=== PATIENT | female | born 1990 | race Hispanic/Latino ===

== ENCOUNTER 2016-11-24 00:25 | Emergency (ER) | payer SELFPAY ==
[2016-11-24 01:08] VITALS: BP 164/99
--- NOTE | 2016-11-24 01:34 | Emergency Department Report ---
ED General Adult HPI - General Chief complaint: Overdose Stated complaint: OVERDOSE Time Seen by Provider: 11/24/16 01:24 Source: patient, family, EMS (ems notes not available at time of chart dictation), RN notes reviewed Mode of arrival: Stretcher Limitations: No Limitations - History of Present Illness Initial comments: This is a 26-year-old female. She is previously unknown to me. As per the patient's sister, Mrs. Iliana Segovia; [phone], patient has a past history of polysubstance abuse. The patient apparently took an unknown recreational drug prior to arrival, think it was GHB. The patient is not homicidal or suicidal. She does not have access to guns or firearms. She indicates that she was taking the drug for recreational purposes. She reports that she did not fall, she reports that she did not hit her head. Patient was brought to the hospital for overdose and unresponsiveness. As per triage documentation, EMS gave 2 mg of Narcan, and the patient came back around. Severity scale (0 -10): 0 Consistency: now resolved Improves with: medication Worsens with: none Associated Symptoms: denies other symptoms - Related Data Previous Rx's Medication Instructions Recorded Last Taken Type Naloxone HCl [Narcan] 4 mg NS Q1HR PRN #1 spray 11/24/16 Unknown Rx Allergies Allergy/AdvReac Type Severity Reaction Status Date / Time Penicillins Allergy Unknown Unknown Verified 04/20/13 13:01 ED Review of Systems ROS: Stated complaint: OVERDOSE Other details as noted in HPI ED Past Medical Hx - Past Medical History Previous Medical History?: No Hx Hypertension: No Hx Congestive Heart Failure: No Hx Diabetes: No Hx Deep Vein Thrombosis: No Hx Renal Disease: No Hx Sickle Cell Disease: No Hx Seizures: No Hx Asthma: No Hx COPD: No Hx HIV: No - Surgical History Past Surgical History?: No - Social History Smoking Status: Current Every Day Smoker Substance Use Type: Other - Medications Home Medications: Home Medications Medication Instructions Recorded Confirmed Last Taken Type Naloxone HCl [Narcan] 4 mg NS Q1HR PRN #1 spray 11/24/16 Unknown Rx ED Physical Exam - General Limitations: No Limitations General appearance: alert, in no apparent distress - Head Head exam: Present: atraumatic, normocephalic - Eye Eye exam: Present: normal appearance, PERRL, EOMI. Absent: nystagmus - ENT ENT exam: Present: normal exam, normal orophraynx, mucous membranes moist, normal external ear exam - Neck Neck exam: Present: normal inspection, full ROM. Absent: tenderness, meningismus - Respiratory Respiratory exam: Present: normal lung sounds bilaterally. Absent: respiratory distress, wheezes, rales, rhonchi, stridor, chest wall tenderness, accessory muscle use, decreased breath sounds - Cardiovascular Cardiovascular Exam: Present: regular rate, normal rhythm, normal heart sounds. Absent: bradycardia, tachycardia, irregular rhythm, systolic murmur, diastolic murmur, rubs, gallop - GI/Abdominal GI/Abdominal exam: Present: soft, normal bowel sounds. Absent: distended, tenderness, guarding, rebound, rigid, pulsatile mass - Extremities Exam Extremities exam: Present: normal inspection, full ROM, normal capillary refill. Absent: tenderness, pedal edema, joint swelling, calf tenderness - Back Exam Back exam: Present: normal inspection, full ROM. Absent: tenderness, CVA tenderness (R), CVA tenderness (L), muscle spasm, paraspinal tenderness, vertebral tenderness - Neurological Exam Neurological exam: Present: alert, oriented X3, normal gait, other (Extraocular movements intact. Tongue midline. No facial droop. Facial sensation intact to light touch in the V1, V2, V3 distribution bilaterally. 5 and 5 strength in 4 extremities.. Sensation is intact to light touch in 4 extremities.). Absent : motor sensory deficit - Psychiatric Psychiatric exam: Present: anxious. Absent: homicidal ideation, suicidal ideation - Skin Skin exam: Present: warm, dry, intact, normal color. Absent: rash ED Course Vital Signs 11/24/16 01:07 Temperature 97.9 F Pulse Rate 96 H Respiratory 20 Rate Blood Pressure 164/99 [Right] O2 Sat by Pulse 100 Oximetry - Reevaluation(s) Reevaluation #1: 11/24/16 02:41 Differential diagnosis: Unintentional overdose, history of drug abuse Assessment and plan: 26-year-old female with recreational drug overdose, now alert and oriented 3, has a GCS of 15, NIH score of 0. The patient is refusing all further medical intervention and evaluation. The patient exhibits decision-making capacity. She is free from distracting injury. She is able to articulate the risks of an incomplete evaluation, including , disability, paralysis, permanent loss of quality of life. She is refusing laboratory draw. I offered to have the patient observed in the ER for a few hours. She refused. I offered to have the patient evaluated by the mental health counselor for drug abuse rehabilitation. The patient refused. The patient is going to sign out AGAINST MEDICAL ADVICE. She is accompanied by her mother and by her sister. The patient is encouraged that she can return to the ER right away if and when she changes her mind. She will be discharged at this time. She will be discharged with a Narcan prescription. The whole conversation is witnessed by nurses Yancy Hernandes. ED Medical Decision Making - Lab Data Vital Signs 11/24/16 01:07 Temperature 97.9 F Pulse Rate 96 H Respiratory 20 Rate Blood Pressure 164/99 [Right] O2 Sat by Pulse 100 Oximetry - EKG Data 11/24/16 02:43 Sinus tachycardia, 107 bpm, normal axis, QTC 485 ms, poor R wave progression, not morphologically consistent with STEMI Critical care attestation.: If time is entered above; I have spent that time in minutes in the direct care of this critically ill patient, excluding procedure time. ED Disposition Clinical Impression: Overdose Disposition: LEFT AGAINST MEDICAL ADVICE Is pt being admited?: No Does the pt Need Aspirin: No Condition: Undetermined Instructions: Polysubstance Abuse (ED) Additional Instructions: As we discussed, he was leaving the hospital AGAINST MEDICAL ADVICE. by leaving , the patient risks , disability, paralysis, loss of quality of life. If you change your mind, return to the ER right away. The emergency room is open 24 hours a day, 7 days a week. It never closes. Discontinue consumption of drugs. They are bad for your health. Dr. Timothy Madison is a local primary care doctor. Follow up with him or a local mental health department as soon as possible. Please return to the ER right away if and when you change your mind. Prescriptions: Naloxone HCl [Narcan] 4 mg NS Q1HR PRN #1 spray PRN Reason: Agitation Referrals: PRIMARY CARE, [Primary Care Provider] - 3-5 Days TIMOTHY MADISON MD [Staff Physician] - 3-5 Days [facility] [Outside] - 3-5 Days
== END 2016-11-24 02:29 | disposition left against medical advice (07) ==
LOC: ED 00:25
DX: T65.91XA Toxic effect of unspecified substance, accidental (unintentional), initial encounter (principal); F17.200 Nicotine dependence, unspecified, uncomplicated; Z88.0 Allergy status to penicillin; Y92.89 Other specified places as the place of occurrence of the external cause
CPT/HCPCS: 93005; 93010; 99284

== ENCOUNTER 2018-02-26 14:12 | Inpatient (IN) | payer OTHER ==
[2018-02-26 15:09] VITALS: BP 162/101
[2018-02-26] MEDS ORDERED: SUBLIMAZE IV PRN (15:19)
[2018-02-26] MEDS ORDERED: NARCAN 0.4 MG/1 ML IV PRN (15:19)
[2018-02-26] MEDS ORDERED: MINERAL OIL PO PRN (15:19)
[2018-02-26] MEDS ORDERED: ZOFRAN IV PRN (15:19)
[2018-02-26] MEDS ORDERED: BRETHINE IVP PRN (15:19)
[2018-02-26] MEDS ORDERED: BRETHINE SUB-Q PRN (15:19)
[2018-02-26] MEDS ORDERED: STADOL IV PRN (15:19)
[2018-02-26] MEDS ORDERED: XYLOCAINE 2% INFILTRATI ONE (15:19)
[2018-02-26] MEDS ORDERED: MAGNESIUM SULFATE 40GM/1000ML 40 GM/1,000 ML BAG IV SCH (16:00)
[2018-02-26] MEDS ORDERED: CLEOCIN 900 MG/50 mL 900 MG/50 ML BAG IV SCH (16:00)
[2018-02-26] MEDS ORDERED: PITOCin/NS 20 UNIT/1000ML DRIP 20 UNITS/1,000 ML BAG IV SCH (16:00)
[2018-02-26] MEDS ORDERED: LACTATED RINGERS 1,000 ML IV SCH (16:00)
[2018-02-26] MEDS ORDERED: PITOCin/NS 30 UNIT/500ML 30 UNITS/500 ML BAG IV SCH ×2 (16:00)
[2018-02-26] MEDS ORDERED: MAGNESIUM SULFATE 4GM/100ML 4 GM/100 ML BAG IV ONE (16:23)
[2018-02-26 17:52] LABS: Amphetamine Screen,Urine PRESUMPTIVE NEGATIVE; Benzodiazepines Screen,Urine PRESUMPTIVE NEGATIVE; Cannabinoid Screen,Urine PRESUMPTIVE NEGATIVE; Cocaine Screen,Urine PRESUMPTIVE NEGATIVE; Methadone Screen,Urine PRESUMPTIVE NEGATIVE; Opiate Screen,Urine PRESUMPTIVE NEGATIVE
== END 2018-02-26 16:15 | disposition left against medical advice (07) | DRG 781 ==
LOC: TRG 14:12 → LD 15:35
PROVIDERS: ADMIT Obstetrics & Gynecology; ATTEND Obstetrics & Gynecology
DX: O99.343 Other mental disorders complicating pregnancy, third trimester (principal); O16.3 Unspecified maternal hypertension, third trimester; O14.93 Unspecified pre-eclampsia, third trimester; F41.9 Anxiety disorder, unspecified; Z3A.37 37 weeks gestation of pregnancy
CPT/HCPCS: 80307

== ENCOUNTER 2018-02-27 14:08 | Inpatient (IN) | payer OTHER ==
[2018-02-27 16:13] LABS: Hematocrit 35.3 % (30.3-42.9); Hemoglobin 11.6 gm/dl (10.1-14.3); Mean Corpuscular HGB Conc 33 % (30-34); Mean Corpuscular Hemoglobin 28 pg (28-32); Mean Corpuscular Volume 85 fl (79-97); Platelet Count 159 K/mm3 (140-440); Red Blood Count 4.15 M/mm3 (3.65-5.03); Red Cell Distribution Width 18.7 % (13.2-15.2)
[2018-02-27 16:54] LABS: Uric Acid 6.8 mg/dL (3.5-7.6)
--- NOTE | 2018-02-27 17:56 | Ultrasound Report ---
FINAL REPORT EXAM: US OB FOLLOW UP HISTORY: NO CARE TECHNIQUE: Transabdominal sonography of the pelvis. PRIORS: None. FINDINGS: There is a single, live intrauterine in cephalic presentation. heart motion is detected and heart rate is 139 beats per minute. Placenta is located posterior fundal and there is no evidence of previa. Biometric data obtained and corresponds to an estimated gestational age of 37 weeks 3 days and an ultrasound estimated date of delivery of 17 March 2018. survey not performed. Some fluid incidentally noted in bilateral hemiscrotum. Amniotic fluid index is 19.4 cm. EFW: 3231g +/- 478g. BPD: 8.95 cm HC: 33.57 cm AC: 33.95 cm FL: 7.22 cm Remainder of the uterus and adnexa grossly unremarkable. IMPRESSION: 1. Single, live intrauterine .
--- NOTE | 2018-02-27 17:57 | Ultrasound Report ---
FINAL REPORT EXAM: US OB BPP WO NON-STRESS HISTORY: BETTER ASSESSMENT OF DATES TECHNIQUE: Transabdominal sonography of the pelvis. PRIORS: None. FINDINGS: Biophysical profile: breathing movements: 2/2 movements: 2/2 posture and tone: 2/2 Qualitative amniotic fluid volume: 2/2 Total: 8/8 heart rate 139 beats per minute. IMPRESSION: 1. Biophysical profile as noted above.
[2018-02-27] MEDS ORDERED: APRESOLINE IV ONE (18:15)
[2018-02-27] MEDS ORDERED: MAGNESIUM SULFATE 4GM/100ML 4 GM/100 ML BAG IV ONE (18:16)
[2018-02-27] MEDS ORDERED: SUBLIMAZE IV PRN (18:23)
[2018-02-27] MEDS ORDERED: MINERAL OIL PO PRN ×2 (18:23→21:36)
[2018-02-27] MEDS ORDERED: STADOL IV PRN (18:23)
[2018-02-27] MEDS ORDERED: BRETHINE IVP PRN ×2 (18:23→21:36)
[2018-02-27] MEDS ORDERED: PHENERGAN PO PRN (18:23)
[2018-02-27] MEDS ORDERED: XYLOCAINE 2% INFILTRATI ONE ×2 (18:23→21:36)
[2018-02-27] MEDS ORDERED: BRETHINE SUB-Q PRN ×2 (18:23→21:36)
[2018-02-27] MEDS ORDERED: ZOFRAN IV PRN (18:23)
[2018-02-27] MEDS ORDERED: MAGNESIUM SULFATE 40GM/1000ML 40 GM/1,000 ML BAG IV SCH (19:00)
[2018-02-27] MEDS ORDERED: PITOCin/NS 20 UNIT/1000ML DRIP 20 UNITS/1,000 ML BAG IV SCH (19:00)
[2018-02-27] MEDS ORDERED: PITOCin/NS 30 UNIT/500ML 30 UNITS/500 ML BAG IV SCH (19:00)
[2018-02-27] MEDS ORDERED: LACTATED RINGERS 1,000 ML IV SCH (19:00)
[2018-02-27 19:59] LABS: Mucus,Urine FEW /HPF
[2018-02-27 20:15] LABS: Bilirubin,Urine Negative (Negative); Blood,Urine Negative (Negative); Color,Urine Straw (Yellow); Protein,Urine >500 mg/dL (Negative); Urobilinogen,Urine < 2.0 mg/dL (<2.0)
[2018-02-27] MEDS ORDERED: NARCAN 0.4 MG/1 ML IV PRN (21:36)
--- NOTE | 2018-02-27 21:46 | History and Physical Report ---
History of Present Illness Date of examination: 02/27/18 Date of admission: 02/27/18 19:57 Chief complaint: came back after patient left AMA yesterday for elevated BP 200/100s History of present illness: This is a 28 yo at 37 weeks came into triage with elevated BP as she was admitted by another physician for elevated BP at term. She has piecemeal care without any records available. Past History Past Medical History: no pertinent history Past Surgical History: no surgical history Family/Genetic History: none Social history: single, prescription drug abuse. denies: smoking, alcohol abuse - Obstetrical History : 6 Para: 3 Hx # Term Pregnancies: 3 Number of Pregnancies: 0 Spontaneous Abortions: 0 Induced : 0 Number of Living Children: 3 Medications and Allergies Allergies Allergy/AdvReac Type Severity Reaction Status Date / Time Penicillins Allergy Unknown Unknown Verified 04/20/13 13:01 Home Medications Medication Instructions Recorded Confirmed Last Taken Type Naloxone HCl [Narcan] 4 mg NS Q1HR PRN #1 spray 11/24/16 02/26/18 1 Year Ago Rx ~02/26/17 Active Meds: Active Medications Butorphanol Tartrate (Stadol) 2 mg IV Q2H PRN PRN Reason: Pain , Severe (7-10) Ephedrine Sulfate (Ephedrine Sulfate) 10 mg IV Q2M PRN PRN Reason: Hypotension Ephedrine Sulfate (Ephedrine Sulfate) 10 mg IV Q2M PRN PRN Reason: Hypotension Fentanyl (Sublimaze) 100 mcg IV Q2H PRN PRN Reason: Labor Pain Last Admin: 02/27/18 19:35 Dose: 100 mcg Magnesium Sulfate (Magnesium Sulfate 40gm/1000ml) 40 gm in 1,000 mls @ 50 mls/ hr IV DIRECT TRAVIS Last Admin: 02/27/18 19:43 Dose: 2 gm/hr, 50 mls/hr Lactated Ringer's (Lactated Ringers) 1,000 mls @ 125 mls/hr IV DIRECT TRAVIS Oxytocin/Sodium Chloride (Pitocin/Ns 20 Unit/1000ml Drip) 20 units in 1,000 mls @ 125 mls/hr IV DIRECT TRAVIS Oxytocin/Sodium Chloride (Pitocin/Ns 30 Unit/500ml) 30 units in 500 mls @ 1 mls /hr IV TITR TRAVIS; Protocol Oxytocin/Sodium Chloride (Pitocin/Ns 30 Unit/500ml) 30 units in 500 mls @ 0 mls /hr IV TITR TRAVIS; Protocol Lactated Ringer's (Lactated Ringers) 1,000 mls @ 125 mls/hr IV DIRECT TRAVIS Labetalol HCl (Normodyne) 100 mg PO BID TRAVIS Lidocaine (Xylocaine 2%) 20 ml INFILTRATI ONCE ONE Stop: 02/27/18 21:37 Mineral Oil (Mineral Oil) 30 ml PO QHS PRN PRN Reason: Constipation Mineral Oil (Mineral Oil) 30 ml PO QHS PRN PRN Reason: Constipation Naloxone HCl (Narcan 0.4 Mg/1 Ml) 0.1 mg IV Q2MIN PRN PRN Reason: Res Rate </= 8 or 02 SAT < 92% Ondansetron HCl (Zofran) 4 mg IV Q8H PRN PRN Reason: Nausea And Vomiting Promethazine HCl (Phenergan) 25 mg PO Q6H PRN PRN Reason: Nausea And Vomiting Terbutaline Sulfate (Brethine) 0.25 mg SUB-Q ONCE PRN PRN Reason: Hyperstimulation/Hypertonicity Terbutaline Sulfate (Brethine) 0.25 mg IVP ONCE PRN PRN Reason: Hyperstimulation/Hypertonicity Terbutaline Sulfate (Brethine) 0.25 mg SUB-Q ONCE PRN PRN Reason: Hyperstimulation/Hypertonicity Terbutaline Sulfate (Brethine) 0.25 mg IVP ONCE PRN PRN Reason: Hyperstimulation/Hypertonicity Review of Systems All systems: negative - Vital Signs Vital signs: Vital Signs Pulse BP 98 H 156/106 02/27/18 14:56 02/27/18 14:56 Temp Pulse Resp BP Pulse Ox 96.4 F L 117 H 16 179/106 02/27/18 19:44 02/27/18 21:35 02/27/18 19:44 02/27/18 21:35 - Physical Exam Breasts: Positive: normal Cardiovascular: Regular rate, Normal S1 Lungs: Positive: Clear to auscultation, Normal air movement Abdomen: Positive: normal appearance, soft, normal bowel sounds. Negative: distention, guarding Genitourinary (Female): Positive: normal external genitalia, normal perenium Vulva: both: normal Vagina: Positive: normal moisture Anus/Rectum: Positive: normal perianal skin Extremities: Positive: normal Deep Tendon Reflex Grade: Normal +2 - Obstetrical FHR: category 1 Cervical Dilatation: 1 Cervical Effacement Percentage: 50 station: -3 Uterine Contraction Pattern: Absent Uterine Tone Measurement Phase: Resting Results Result Diagrams: 02/27/18 15:53 02/27/18 15:53 Abnormal lab results 02/27/18 02/27/18 Range/Units 15:53 15:53 WBC 12.7 H (4.5-11.0) K/mm3 RDW 18.7 H (13.2-15.2) % Creatinine 1.4 H (0.7-1.2) mg/dL Lactate Dehydrogenase 434 H (91-180) units/L All other labs normal. Assessment and Plan A/P IUP 37 weeks No care Elevated BP Preeclampsia labs Mag 4/2 , strict i's and o's , mag checks every 6 hrs IOL for pree at term consider cytotec vs cervidil close monitor of fetus and maternal BP meds ( acute) labatelol and hydralazine
[2018-02-27] MEDS ORDERED: NORMODYNE IV ONE (21:47)
[2018-02-27] MEDS: AMBIEN PO PRN (22:00)
[2018-02-27] MEDS ORDERED: CYTOTEC VG PRN (22:33)
[2018-02-27] MEDS: NORMODYNE PO SCH (23:41)
[2018-02-28 05:32] LABS: Hematocrit 34.5 % (30.3-42.9); Hemoglobin 11.2 gm/dl (10.1-14.3); Mean Corpuscular HGB Conc 32 % (30-34); Mean Corpuscular Hemoglobin 28 pg (28-32); Mean Corpuscular Volume 86 fl (79-97); Platelet Count 153 K/mm3 (140-440); Red Blood Count 4.03 M/mm3 (3.65-5.03); Red Cell Distribution Width 19.5 % (13.2-15.2)
--- NOTE | 2018-02-28 07:34 | Ultrasound Report ---
ULTRASOUND OB VELOCIMETRY UMBILICAL ARTERY HISTORY: No care, elevated blood pressure. TECHNIQUE: Transabdominal ultrasound. Spectral Doppler interrogation was performed on 3 segments of the umbilical cord. FINDINGS: heart rate measures 139 beats per minute. The spectral waveforms are normal and persistent. No evidence for loss or reversal of end-diastolic flow. The resistive index average measures 0.51. The systolic/diastolic ratio average measures 2.06. IMPRESSION: Umbilical cord Doppler within normal limits.
[2018-02-28] MEDS: NORMODYNE PO SCH ×2 (10:04→22:18)
[2018-02-28] MEDS: LACTATED RINGERS 1,000 ML IV SCH ×2 (10:37→11:34)
[2018-02-28] MEDS: PITOCin/NS 30 UNIT/500ML 30 UNITS/500 ML BAG IV SCH ×7 (11:33→17:09)
[2018-02-28] MEDS ORDERED: NARCAN 2 MG/2 ML IV PRN (12:21)
--- NOTE | 2018-02-28 12:21 | Anesthesia Consultation ---
Anesthesia Consult and Med Hx Date of service: 02/28/18 - Airway Anesthetic Teeth Evaluation: Good ROM Head & Neck: Adequate Mental/Hyoid Distance: Adequate Mallampati Class: Class II Intubation Access Assessment: Probably Good - Pre-Operative Health Status ASA Pre-Surgery Classification: ASA2 Proposed Anesthetic Plan: Epidural, Spinal - Pulmonary Hx Asthma: No COPD: No Hx Pneumonia: No - Cardiovascular System Hx Hypertension: No - Central Nervous System Hx Seizures: No Hx Psychiatric Problems: Yes (hx anxiety disorder) - Endocrine Hx Renal Disease: No Hx End Stage Renal Disease: No Hx Hypothyroidism: No Hx Hyperthyroidism: No - Hematic Hx Anemia: No Hx Sickle Cell Disease: No - Other Systems Hx Alcohol Use: No
--- NOTE | 2018-02-28 12:42 | Progress Note ---
Assessment and Plan A/P IUP 37+1 weeks No care Elevated BP ( pree) mag level 7.7 decreased mag to 1g/hr and recheck Preeclampsia labs offered epidural patinet progressed from 1-4cm will continue with pitocin close monitor of fetus and maternal BP stable ( continue labatelol 100 mg bid) Subjective - Subjective Date of service: 02/28/18 Principal diagnosis: Preeclampsia Interval history: This is a 28 yo at 37 weeks came into triage with elevated BP as she was admitted by another physician for elevated BP at term. She has piecemeal care without any records available. Patient reports: movement normal, contractions, no new complaints, no loss of fluid, no vaginal bleeding Objective - Vital Signs Vital Signs: Vital Signs - 12hr 02/28/18 02/28/18 02/28/18 01:04 01:33 02:04 Pulse Rate 85 83 70 Blood Pressure 133/83 133/82 111/63 O2 Sat by Pulse Oximetry 02/28/18 02/28/18 02/28/18 02:33 03:03 03:33 Pulse Rate 78 81 76 Blood Pressure 121/71 128/67 108/63 O2 Sat by Pulse Oximetry 02/28/18 02/28/18 02/28/18 04:03 04:33 05:03 Pulse Rate 83 85 86 Blood Pressure 107/63 114/66 122/69 O2 Sat by Pulse Oximetry 02/28/18 02/28/18 02/28/18 05:04 05:09 05:11 Pulse Rate 85 85 85 Blood Pressure O2 Sat by Pulse 94 88 94 Oximetry 02/28/18 02/28/18 02/28/18 05:14 05:19 05:24 Pulse Rate 84 85 82 Blood Pressure O2 Sat by Pulse 94 92 92 Oximetry 02/28/18 02/28/18 02/28/18 05:29 05:33 05:34 Pulse Rate 83 83 85 Blood Pressure 112/67 O2 Sat by Pulse 91 93 Oximetry 02/28/18 02/28/18 02/28/18 05:38 05:39 05:44 Pulse Rate 84 83 65 Blood Pressure O2 Sat by Pulse 93 94 95 Oximetry 02/28/18 02/28/18 02/28/18 05:49 05:52 05:54 Pulse Rate 77 79 78 Blood Pressure O2 Sat by Pulse 93 94 94 Oximetry 02/28/18 02/28/18 02/28/18 05:59 06:03 06:04 Pulse Rate 64 77 77 Blood Pressure 121/75 O2 Sat by Pulse 94 93 Oximetry 02/28/18 02/28/18 02/28/18 06:09 06:14 06:19 Pulse Rate 78 79 77 Blood Pressure O2 Sat by Pulse 94 93 93 Oximetry 02/28/18 02/28/18 02/28/18 06:24 06:29 06:33 Pulse Rate 79 82 80 Blood Pressure 119/76 O2 Sat by Pulse 93 93 Oximetry 02/28/18 02/28/18 02/28/18 06:34 06:37 06:39 Pulse Rate 80 84 81 Blood Pressure O2 Sat by Pulse 93 93 93 Oximetry 02/28/18 02/28/18 02/28/18 06:44 06:48 06:49 Pulse Rate 82 82 82 Blood Pressure O2 Sat by Pulse 94 94 93 Oximetry 02/28/18 02/28/18 02/28/18 06:54 06:59 07:03 Pulse Rate 84 83 82 Blood Pressure 124/80 O2 Sat by Pulse 93 93 Oximetry 02/28/18 02/28/18 02/28/18 07:04 07:06 07:09 Pulse Rate 82 82 82 Blood Pressure O2 Sat by Pulse 94 94 93 Oximetry 02/28/18 02/28/18 02/28/18 07:14 07:16 07:19 Pulse Rate 81 80 79 Blood Pressure O2 Sat by Pulse 93 94 93 Oximetry 02/28/18 02/28/18 02/28/18 07:24 07:29 07:34 Pulse Rate 78 76 75 Blood Pressure 121/75 O2 Sat by Pulse 92 93 92 Oximetry 02/28/18 02/28/18 02/28/18 07:38 07:39 08:03 Pulse Rate 82 73 79 Blood Pressure 136/85 O2 Sat by Pulse 0 L 94 Oximetry 02/28/18 02/28/18 02/28/18 08:34 09:03 09:33 Pulse Rate 85 90 90 Blood Pressure 116/73 122/70 119/67 O2 Sat by Pulse Oximetry 02/28/18 02/28/18 02/28/18 10:03 10:04 10:09 Pulse Rate 91 H 91 H 91 H Blood Pressure 141/81 143/84 143/84 O2 Sat by Pulse Oximetry 02/28/18 02/28/18 02/28/18 10:33 10:41 10:46 Pulse Rate 90 99 H Blood Pressure 138/65 O2 Sat by Pulse 86 100 Oximetry 02/28/18 02/28/18 02/28/18 10:48 10:51 10:55 Pulse Rate 91 H 82 Blood Pressure O2 Sat by Pulse 90 87 80 L Oximetry 02/28/18 02/28/18 02/28/18 10:56 11:01 11:03 Pulse Rate 80 81 78 Blood Pressure 141/92 O2 Sat by Pulse 90 89 Oximetry 02/28/18 02/28/18 02/28/18 11:06 11:07 11:12 Pulse Rate 77 Blood Pressure O2 Sat by Pulse 89 87 83 L Oximetry 02/28/18 02/28/18 02/28/18 11:15 11:18 11:20 Pulse Rate 78 Blood Pressure O2 Sat by Pulse 86 90 93 Oximetry 02/28/18 02/28/18 02/28/18 11:25 11:30 11:33 Pulse Rate 79 76 81 Blood Pressure 135/99 O2 Sat by Pulse 100 99 Oximetry 02/28/18 02/28/18 02/28/18 11:35 11:40 11:45 Pulse Rate 78 77 78 Blood Pressure O2 Sat by Pulse 99 99 98 Oximetry 02/28/18 02/28/18 02/28/18 11:50 11:55 11:59 Pulse Rate 77 74 83 Blood Pressure O2 Sat by Pulse 98 97 94 Oximetry 02/28/18 02/28/18 02/28/18 12:00 12:04 12:05 Pulse Rate 82 78 79 Blood Pressure 137/90 O2 Sat by Pulse 97 95 Oximetry 02/28/18 02/28/18 02/28/18 12:10 12:11 12:15 Pulse Rate 81 85 82 Blood Pressure O2 Sat by Pulse 96 93 95 Oximetry 02/28/18 02/28/18 02/28/18 12:20 12:25 12:30 Pulse Rate 79 75 78 Blood Pressure O2 Sat by Pulse 93 92 92 Oximetry 02/28/18 12:34 Pulse Rate 78 Blood Pressure 132/82 O2 Sat by Pulse Oximetry - Exam Breasts: deferred Cardiovascular: Regular rate, Normal S1 Lungs: Clear to auscultation, Normal air movement Abdomen: Present: normal appearance, soft, normal bowel sounds. Absent: distention, tenderness, guarding Vulva: both: normal Uterus: Present: normal, firm. Absent: bogginess, tenderness FHR: category 1 Cervical Dilatation: 4 Uterine Contraction Pattern: Irregular Uterine Tone Measurement Phase: Contraction Uterine Contraction Intensity: Mild Deep Tendon Reflex Grade: Normal +2 - Labs Labs: Abnormal Labs 02/27/18 02/27/18 02/28/18 15:53 15:53 05:03 WBC 12.7 H 13.0 H RDW 18.7 H 19.5 H Creatinine 1.4 H Magnesium Lactate Dehydrogenase 434 H 02/28/18 05:03 WBC RDW Creatinine Magnesium 7.70 H Lactate Dehydrogenase Laboratory Results - last 24 hr 02/27/18 02/27/18 02/27/18 05:05 15:53 15:53 WBC 12.7 H RBC 4.15 Hgb 11.6 Hct 35.3 MCV 85 MCH 28 MCHC 33 RDW 18.7 H Plt Count 159 Creatinine 1.4 H Estimated GFR 45 Uric Acid 6.8 Magnesium AST 36 ALT 16 Lactate Dehydrogenase 434 H Urine Color Urine Turbidity Urine pH Ur Specific [place] Urine Protein Urine Glucose (UA) Urine Ketones Urine Blood Urine Nitrite Ur Reducing Substances Urine Bilirubin Urine Ictotest Urine Urobilinogen Ur Leukocyte Esterase Urine WBC (Auto) Urine RBC (Auto) U Epithel Cells (Auto) Urine Mucus HIV 1&2 Antibody Rapid HIV P24 Antigen Blood Type A POSITIVE Antibody Screen Negative 02/27/18 02/28/18 02/28/18 19:00 05:03 05:03 WBC 13.0 H RBC 4.03 Hgb 11.2 Hct 34.5 MCV 86 MCH 28 MCHC 32 RDW 19.5 H Plt Count 153 Creatinine Estimated GFR Uric Acid Magnesium AST ALT Lactate Dehydrogenase Urine Color Straw Urine Turbidity Clear Urine pH 7.0 Ur Specific [place] 1.005 Urine Protein >500 Urine Glucose (UA) Negative Urine Ketones Negative Urine Blood Negative Urine Nitrite Negative Ur Reducing Substances Not Reportable Urine Bilirubin Negative Urine Ictotest Not Reportable Urine Urobilinogen < 2.0 Ur Leukocyte Esterase Negative Urine WBC (Auto) 4.0 Urine RBC (Auto) 3.0 U Epithel Cells (Auto) 1.0 Urine Mucus Few HIV 1&2 Antibody Rapid Non react HIV P24 Antigen Non react Blood Type Antibody Screen 02/28/18 05:03 WBC RBC Hgb Hct MCV MCH MCHC RDW Plt Count Creatinine Estimated GFR Uric Acid Magnesium 7.70 H AST ALT Lactate Dehydrogenase Urine Color Urine Turbidity Urine pH Ur Specific [place] Urine Protein Urine Glucose (UA) Urine Ketones Urine Blood Urine Nitrite Ur Reducing Substances Urine Bilirubin Urine Ictotest Urine Urobilinogen Ur Leukocyte Esterase Urine WBC (Auto) Urine RBC (Auto) U Epithel Cells (Auto) Urine Mucus HIV 1&2 Antibody Rapid HIV P24 Antigen Blood Type Antibody Screen
[2018-02-28] MEDS ORDERED: POLYCILLIN/NS 2 GM/100 ML 2 GM/100 ML BAG IV ONE (12:58)
[2018-02-28] MEDS ORDERED: fentaNYL-BUPIV 2 MCG/ML-0.125% 200 MCG/100 ML BAG EPIDURAL SCH (13:00)
[2018-02-28] MEDS ORDERED: AMPICILLIN/NS 1 GM/50 ML 1 GM/50 ML BAG IV SCH (14:00)
[2018-02-28 17:22] LABS: Benzodiazepines Screen,Urine PRESUMPTIVE NEGATIVE; Cannabinoid Screen,Urine PRESUMPTIVE NEGATIVE; Cocaine Screen,Urine PRESUMPTIVE NEGATIVE; Methadone Screen,Urine PRESUMPTIVE NEGATIVE; Opiate Screen,Urine PRESUMPTIVE NEGATIVE
[2018-02-28 17:47] LABS: Amphetamine Screen,Urine PRESUMPTIVE POSITIVE
[2018-02-28] MEDS ORDERED: CYTOTEC ONE ×2 (18:02→18:38)
--- NOTE | 2018-02-28 18:50 | Procedure Note ---
OB Delivery Note - Delivery Date of Delivery: 02/28/18 Surgeon: CEDRICK TAYLOR Estimated blood loss: 300cc - Vaginal Delivery presentation: vertex Delivery position: OA Intrapartum events: PROM->1hr before delivery, meconium, preeclampsia, mult. late decelerations, mult.variable deceleratio, uterine atony Delivery induction: oxytocin Delivery augmentation: rupture of membranes, pitocin Delivery monitor: internal FHT, internal uterine Route of delivery: Delivery placenta: spontaneous Delivery cord: 3 umbilical vessels Episiotomy: none Delivery laceration: none Anesthesia: epidural Delivery comments: Pt progressed to complete/complete/0 and pushed to deliver a viable male over intact perineum via under epidural anesthesia. Head delivered in ARUN position, followed by shoulders and body. Cord clamped and cut and handed to NICU in attendance for meconium. Placenta delivered spontaneously (3VC , intact). Vagina and perineum explored. No lacerations noted. Misoprostol 800 mcg placed per rectum. EBL 300mL. - Infant A at 1 minute: 7 at 5 minutes: 8 Infant Gender: Male (3163g (7lb 0oz) @ 1833 pm)
[2018-02-28 23:33] LABS: Hepatitis C Virus Antibody Non-Reactive (NonReactive)
[2018-03-01] MEDS ORDERED: LACTATED RINGERS 1,000 ML IV SCH (01:14)
[2018-03-01] MEDS ORDERED: TYLENOL PO PRN (01:14)
[2018-03-01] MEDS ORDERED: BENADRYL PO PRN (01:14)
[2018-03-01] MEDS ORDERED: TUCKS PAD TP PRN (01:14)
[2018-03-01] MEDS ORDERED: SODIUM CHLORIDE FLUSH SYRINGE 10 ML IV PRN (01:14)
[2018-03-01] MEDS ORDERED: DULCOLAX PR PRN (01:14)
[2018-03-01] MEDS ORDERED: MAGNESIUM SULFATE 40GM/1000ML 40 GM/1,000 ML BAG IV SCH (01:14)
[2018-03-01] MEDS ORDERED: PHENERGAN PR PRN (01:14)
[2018-03-01] MEDS ORDERED: PITOCin/NS 20 UNIT/1000ML DRIP 20 UNITS/1,000 ML BAG IV SCH (01:14)
[2018-03-01] MEDS ORDERED: PHENERGAN PO PRN (01:14)
[2018-03-01] MEDS ORDERED: CALCIUM GLUCONATE IV ONE (01:14)
[2018-03-01] MEDS ORDERED: MILK OF MAGNESIA PO PRN (01:14)
[2018-03-01] MEDS ORDERED: NORCO 5/325 PO PRN (01:14)
[2018-03-01] MEDS ORDERED: ZOFRAN IV PRN (01:14)
[2018-03-01] MEDS ORDERED: FEOSOL PO SCH (01:14)
[2018-03-01 01:41] LABS: Rubella IgG Antibody Non-Immune (Immune)
[2018-03-01] MEDS: AMBIEN PO PRN (01:41)
--- NOTE | 2018-03-01 06:07 | Event Note ---
Date: 03/01/18 On-call MD just called by RN and notified that Mag level last night 8.0, Mag has been turned off and a stat Mag level ordered. Per RN no signs of respiratory depression. Closely monitor clinical status.
[2018-03-01 06:58] LABS: Hematocrit 28.7 % (30.3-42.9); Hemoglobin 9.8 gm/dl (10.1-14.3)
--- NOTE | 2018-03-01 07:46 | Progress Note ---
Assessment and Plan PPD1 s/p mag for Preeclampsia ( total of 12 hrs PP) diuresing elevated mag level ( from 8.6 to 8) was turned off last night routine PP care closely monitor BP await consult from case mgt + amphetamines await consult for psych ( hx of anxiety , bizzare affect, drugs) continue labatelol for BP control ( 100 mg po bid) Subjective - Subjective Date of service: 03/01/18 Principal diagnosis: Preeclampsia Interval history: This is a 28 yo at 37 weeks came into triage with elevated BP as she was admitted by another physician for elevated BP at term. She has piecemeal care without any records available. Patient reports: appetite normal, voiding normally, pain well controlled [place]: doing well Objective - Vital Signs Latest vital signs: Vital Signs Temp Pulse Resp BP BP Pulse Ox 03/01/18 02:00 98.7 F 78 18 138/88 02/28/18 23:35 99.1 F 94 H 123/80 02/28/18 22:42 103 H 133/63 02/28/18 22:22 101 H 134/75 02/28/18 22:20 97.6 F 18 02/28/18 22:18 101 H 134/75 02/28/18 22:02 101 H 129/71 02/28/18 21:42 101 H 132/89 02/28/18 21:18 100 H 141/98 02/28/18 21:03 98 H 140/90 02/28/18 20:49 96 H 140/88 02/28/18 20:33 94 H 129/83 02/28/18 20:31 90 116/67 02/28/18 20:19 84 193/115 02/28/18 20:15 94 H 142/65 02/28/18 19:49 83 207/75 02/28/18 19:41 78 133/95 02/28/18 19:29 97.5 F L 22 02/28/18 19:19 80 156/94 02/28/18 19:03 81 113/82 02/28/18 18:46 74 117/63 02/28/18 18:14 67 97 02/28/18 18:09 67 100 02/28/18 18:04 69 96 02/28/18 18:02 66 94 02/28/18 17:59 62 95 08/16/18 17:54 62 94 08/16/18 17:49 69 95 08/16/18 17:48 60 94 08/16/18 17:46 58 L 89/44 08/16/18 17:44 65 96 08/16/18 17:43 65 94 08/16/18 17:39 67 93 08/16/18 17:34 68 93 08/16/18 17:33 93 08/16/18 17:17 65 117/69 08/16/18 17:14 68 123/72 08/16/18 16:46 53 L 92/53 08/16/18 16:45 62 93 08/16/18 16:42 67 94 08/16/18 16:40 63 95 08/16/18 16:36 71 94 08/16/18 16:35 63 94 08/16/18 16:30 69 94 08/16/18 16:25 68 94 08/16/18 16:20 69 95 08/16/18 16:18 66 94 08/16/18 16:17 58 L 101/58 08/16/18 16:14 67 96 08/16/18 16:13 70 93 08/16/18 16:09 67 94 08/16/18 16:07 67 94 08/16/18 16:04 69 92 08/16/18 15:59 67 92 08/16/18 15:54 63 92 08/16/18 15:49 68 91 08/16/18 15:47 67 105/61 08/16/18 15:44 62 92 08/16/18 15:39 70 91 08/16/18 15:34 64 92 08/16/18 15:31 64 94 08/16/18 15:29 69 92 08/16/18 15:24 66 93 08/16/18 15:19 66 95 08/16/18 15:17 67 94 08/16/18 15:16 65 100/55 08/16/18 15:14 66 94 08/16/18 15:09 66 94 08/16/18 15:07 68 94 08/16/18 15:04 64 93 08/16/18 14:59 69 93 08/16/18 14:54 70 93 08/16/18 14:49 71 95 08/16/18 14:48 65 94 08/16/18 14:47 65 116/68 08/16/18 14:44 67 90 08/16/18 14:39 66 93 08/16/18 14:36 66 106/58 08/16/18 14:35 69 94 08/16/18 14:34 65 96 08/16/18 14:29 68 92 08/16/18 14:24 70 93 08/16/18 14:19 70 92 08/16/18 14:16 67 91/50 94 08/16/18 14:14 67 93 08/16/18 14:09 69 94 08/16/18 14:04 68 95 08/16/18 14:02 64 94 08/16/18 13:59 68 94 08/16/18 13:57 62 94 08/16/18 13:54 65 95 08/16/18 13:52 68 94 08/16/18 13:49 65 95 08/16/18 13:46 66 109/56 08/16/18 13:45 69 92 08/16/18 13:44 67 95 08/16/18 13:40 67 94 08/16/18 13:39 67 93 08/16/18 13:34 65 94 08/16/18 13:29 65 94 08/16/18 13:24 70 93 08/16/18 13:23 66 96 08/16/18 13:18 66 96 08/16/18 13:16 67 94 08/16/18 13:15 68 100/56 08/16/18 13:14 65 97/56 08/16/18 13:13 63 95/52 95 08/16/18 13:11 63 91/53 08/16/18 13:09 67 105/56 08/16/18 13:08 67 95 08/16/18 13:07 67 111/57 08/16/18 13:06 73 93 08/16/18 13:05 66 93/55 08/16/18 13:03 65 95/53 95 08/16/18 13:01 62 89/54 08/16/18 12:59 67 98/53 08/16/18 12:58 70 94 08/16/18 12:57 72 107/59 08/16/18 12:55 75 115/61 08/16/18 12:53 66 105/57 94 08/1618 12:51 63 105/58 16/18 12:49 70 109/60 16/18 12:48 163 H 78 L 18 12:47 78 107/60 1618 12:46 75 108/57 16/18 12:43 71 115/71 16/18 12:41 68 97/56 16/18 12:34 78 132/82 16/18 12:30 78 92 1618 12:25 75 92 1618 12:20 79 93 16/18 12:15 82 95 16/18 12:11 85 93 1618 12:10 81 96 1618 12:05 79 95 1618 12:04 78 137/90 18 12:00 82 97 16/18 11:59 83 94 1618 11:55 74 97 16/18 11:50 77 98 1618 11:45 78 98 18 11:40 77 99 1618 11:35 78 99 16/18 11:33 81 135/99 16/18 11:30 76 99 16/18 11:25 79 100 1618 11:20 78 93 1618 11:18 90 18 11:15 86 1618 11:12 83 L 18 11:07 77 87 16/18 11:06 89 18 11:03 78 141/92 18 11:01 81 89 1618 10:56 80 90 1618 10:55 80 L 18 10:51 82 87 16/18 10:48 91 H 90 1618 10:46 99 H 100 16/18 10:41 86 16/18 10:33 90 138/65 16/18 10:09 91 H 143/84 16/18 10:04 91 H 143/84 16/18 10:03 91 H 141/81 16/18 09:33 90 119/67 16/18 09:03 90 122/70 16/18 08:34 85 116/73 02/28/18 08:03 79 136/85 Intake and Output 02/28/18 02/28/18 03/01/18 15:59 23:59 07:59 Intake Total 146.351 30 Output Total 360 400 Balance -213.649 -370 Intake: IV 146.351 30 Lactated Ringers 1,000 ml 118.75 @ 125 mls/hr IV DIRECT TRAVIS Rx#:[id number] PITOCin/NS 30 UNIT/500ML 27.601 30 30 units In 500 ml @ As Directed IV TITR TRAVIS Rx#: [id number] Output: Urine 360 400 Indwelling Catheter 360 400 Other: Total, Output Amount 60 400 Estimated Blood Loss 300 - Exam Breasts: Present: normal Cardiovascular: Present: Regular rate, Normal S1 Lungs: Present: Clear to auscultation, Normal air movement Abdomen: Present: normal appearance, soft, normal bowel sounds. Absent: distention, tenderness, guarding Vulva: both: normal Uterus: Present: normal, firm, fundal height below umbilicus. Absent: bogginess , tenderness Extremities: Present: normal Deep Tendon Reflex Grade: Normal +2 - Labs Labs: Abnormal lab results 02/28/18 02/28/18 02/28/18 Range/Units 05:03 12:20 22:05 Hgb (10.1-14.3) gm/dl Hct (30.3-42.9) % Magnesium 7.70 H 8.60 H 8.00 H (1.7-2.3) mg/dL 03/01/18 Range/Units 06:11 Hgb 9.8 L (10.1-14.3) gm/dl Hct 28.7 L (30.3-42.9) % Magnesium (1.7-2.3) mg/dL
[2018-03-01] MEDS: NORMODYNE PO SCH (18:00)
[2018-03-01] MEDS: MOTRIN PO SCH (18:00)
[2018-03-01] MEDS ORDERED: M-M-R II VACCINE SUB-Q ONE (18:59)
[2018-03-02] MEDS: NORMODYNE PO SCH (01:30)
[2018-03-02] MEDS: MOTRIN PO SCH ×3 (01:31→18:50)
[2018-03-02] MEDS ORDERED: BOOSTRIX IM ONE (06:00)
[2018-03-02] MEDS ORDERED: NORMODYNE PO SCH (08:22)
--- NOTE | 2018-03-02 09:18 | Progress Note ---
Assessment and Plan - Patient Problems (1) Preeclampsia Current Visit: Yes Status: Acute Plan to address problem: Will increase labetalol dose to 300 mg twice a day Continue to monitor her hypertensive status consider Consider discharge home tomorrow Subjective - Subjective Date of service: 03/02/18 Principal diagnosis: Preeclampsia Interval history: The patient is status post use of magnesium sulfate for seizure prophylaxis for preeclampsia. The patient continues to have labile blood pressures. She is currently receiving labetalol 100 mg twice a day. Her pain is controlled and she is tolerating a regular diet without complication. The patient is currently ambulating in the room. Patient reports: appetite normal, voiding normally, pain well controlled [place]: doing well Objective - Vital Signs Latest vital signs: Vital Signs Temp Pulse Resp BP BP Pulse Ox 03/02/18 07:55 98.0 F 99 H 20 115/79 90 03/02/18 01:30 84 160/91 03/02/18 01:14 98.9 F 84 22 156/99 03/02/18 00:57 164/113 03/01/18 16:20 98.6 F 69 18 121/78 03/01/18 10:30 98.7 F 81 16 132/70 Intake and Output 03/01/18 03/02/18 03/02/18 22:59 06:59 14:59 Intake Total 240 Output Total 1000 Balance -1000 240 Intake: Oral 240 Output: Urine 1000 Indwelling Catheter 1000 Other: Total, Intake Amount 240 Total, Output Amount 1000 # Voids Void 1 - Exam Uterus: Present: normal, firm
[2018-03-02 16:27] VITALS: BP 142/93
== END 2018-03-02 17:00 | disposition left against medical advice (07) | DRG 775 ==
LOC: TRG 14:08 → LD 19:57 → OB 02-28 23:37
PROVIDERS: ADMIT Obstetrics & Gynecology; ATTEND Obstetrics & Gynecology
PROC: 10E0XZZ Delivery of Products of Conception, External Approach (ICD-10-PCS; principal; 2018-02-28)
PROC: 3E033VJ Introduction of Other Hormone into Peripheral Vein, Percutaneous Approach (ICD-10-PCS; 2018-02-28)
PROC: 3E0R3BZ Introduction of Anesthetic Agent into Spinal Canal, Percutaneous Approach (ICD-10-PCS; 2018-02-28)
PROC: 00HU33Z Insertion of Infusion Device into Spinal Canal, Percutaneous Approach (ICD-10-PCS; 2018-02-28)
DX: O14.94 Unspecified pre-eclampsia, complicating childbirth (principal); O42.02 Full-term premature rupture of membranes, onset of labor within 24 hours of rupture; O77.0 Labor and delivery complicated by meconium in amniotic fluid; O76 Abnormality in fetal heart rate and rhythm complicating labor and delivery; O62.2 Other uterine inertia; Z3A.37 37 weeks gestation of pregnancy; Z37.0 Single live birth
CPT/HCPCS: 36415; 76816; 76819; 76820; 80307; 81001; 82565; 83615; 83735; 84450; 84460; 84550; 85014; 85018; 85027; 85660; 86592; 86706; 86762; 86803; 86850; 86900; 86901; 87086; 87806; 88307; J0290; J0360; J2590; J3010; J3475; J7120